=== PATIENT | male | born 1990 | race Caucasian/White ===

== ENCOUNTER → 2019-07-28 08:01 | Outpatient (CLI) | payer OTHER, SELFPAY ==
--- NOTE | 2019-07-28 | DI.MRI.S_ITS ---
PROCEDURE: MR ANGIO HEAD WO CON INDICATIONS: Aneurysm of carotid artery TECHNIQUE: Noncontrast axial 3-D [id number] MR angiogram, with 3-dimensional maximum intensity projection (MIP) reformats of the internal carotid arteries and posterior circulation then performed. COMPARISON: [facility], RG, CT ANGIO HEAD, 06/28/2017, 16:37. [facility], RG, CT HEAD W/WO CONTRAST, 06/28/2017, 16:03. FINDINGS: Image quality: Excellent. Anterior circulation: Intracranial internal carotid arteries demonstrate normal size and intraluminal flow signal. The flow within the paired anterior cerebral arteries is normal and symmetric. The flow within the middle cerebral arteries is normal and symmetric. The anterior communicating artery is seen. No stenoses, occlusions, or aneurysms. Comment: The intracranial CT angiogram dated 06/28/[address] 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 This area was specifically reported to be best seen on the sagittal reformation imaging from the CT source axial images on CT series 10, image 72. That particular site is actually not yet at the anatomic position of the supraclinoid left intracranial internal carotid artery but rather is at the undersurface of the undersurface of the superior half of the anterior genu segment of the artery. The overlying left clinoid process in this patient is relatively prominent, mildly deviating the underlying coarse of the artery focally downward just prior to its normal extension cephalad to the true supraclinoid segment. There is a similar slight kink as the undersurface of the cavernous segment transition to the inferior half of the anterior genu segment. Each of these 2 areas shows a resultant slight focal inferior curvature of the vessel wall. This curvature is expected given the morphology of the vessel segments, and there is no suspicion for this representing a sessile aneurysm at either of the 2 sites. The morphology of the vessel segments is better visualized by the current MR angiography, has not changed from the prior CT angiography, and the current study shows no suspicion for presence of aneurysm or vascular malformation elsewhere. Posterior circulation: Visualized portions of the vertebral arteries demonstrate prominently asymmetric caliber strongly left vertebral dominant, and do not join to form a normal appearing basilar artery. Rather, the diminutive right vertebral artery extends cephalad directly into the posterior inferior cerebellar artery while the left vertebral artery forms the basilar artery which extends as a normal vessel cephalad into the posterior circulation. The flow within the posterior cerebral arteries is normal and symmetric. No stenoses, occlusions, or aneurysms. IMPRESSION: 1. No sessile aneurysm is present in the area of prior CT concern at the margin of the intracranial internal carotid artery on the left. Please refer to the comment segment of the body of the report above for detailed anatomic discussion of the anatomy of the vessels in the area of concern in the cause of the prior CT finding. 2. There is a normal anatomic variant in this patient of diminutive right vertebral artery that extends directly cephalad into the right posterior inferior cerebellar artery. The left vertebral artery is strongly dominant, transitions into a normal appearing basilar artery, and arterial blood flow extends normally into the posterior circulation through that pathway. Dictated by: Monty Kang M.D. on 07/28/2019 at 9:37 Approved by: Altaf Moran M.D. on 08/03/2019 at 9:56
== END ==
PROVIDERS: PCP Family Medicine; Referring Provider Family Medicine; Visit Provider Family Medicine
DX: I72.0 Aneurysm of carotid artery (principal)
CPT/HCPCS: 70544

== ENCOUNTER → 2020-05-15 11:25 | Outpatient (ROUT) | payer OTHER, SELFPAY ==
[2020-05-15 11:55] LABS: COVID19 -Nasal RAPID Negative (Negative)
== END ==
PROVIDERS: PCP Family Medicine; Visit Provider Family Medicine
DX: Z01.812 Encounter for preprocedural laboratory examination (principal)
CPT/HCPCS: 87635

== ENCOUNTER 2020-12-14 15:54 | Emergency (ER) | payer OTHER, MEDICAID, SELFPAY ==
[2020-12-14 16:04] VITALS: BP 122/75; PULSE 87; RESP 15; TEMP 37.1; O2SAT 97; BMI 33.9
[2020-12-14 18:52] LABS: COVID19 -Nasal RAPID Negative (Negative)
--- NOTE | 2020-12-14 19:49 | ED.GENADULT ---
HPI - General Adult General Chief complaint: Weakness Stated complaint: nausea, weakness Time Seen by Provider: 12/14/20 18:10 Source: patient Mode of arrival: Ambulatory Limitations: no limitations History of Present Illness HPI narrative: 29-year-old gentleman with recent diagnosis of ADHD not currently medicated presents with acute illness symptoms starting at 1:00 p.m. today. He was nauseated had some chills but no fevers did not actually vomit but when his came home she was concerned that he was pale and looked obviously ill and brought him into the emergency room. Shortly after arrival she developed the same symptoms. He complains that he is excessively fatigued, nauseated. He did not actually vomit until he saw the IV started in her arm(he notes that he typically has reactions to blood draws and IVs). After some weight time prior to being seen he notes that he is feeling somewhat better, still fatigued but not quite is nauseated, thirsty no fevers, chest pain, diarrhea, abdominal pain, headaches, dizziness. Related Data Previous Rx's Medication Instructions Recorded ondansetron 4 mg disintegrating 4 mg PO Q6H PRN #14 tab 12/14/20 tablet Allergies Allergy/AdvReac Type Severity Reaction Status Date / Time No Known Drug Allergies Allergy Verified 12/14/20 16:05 Review of Systems Review of Systems Narrative: Remainder of complete review of systems is otherwise unremarkable except for that included in the HPI. Patient History Social History Smoking Status: Unknown if ever smoked Smoking Status: Unknown if ever smoked alcohol intake frequency: holidays/special occasions only Substance Use Type: does not use Exam Narrative Exam Narrative: General: Healthy appearing, in no acute distress. Able to give a complete and coherent history. Well-nourished well-developed HEENT: Moist mucous membranes, normal sclera with reactive pupils, Respiratory: Lungs are clear to auscultation, no wheezing no rales no rhonchi. Full and symmetrical air movement Cardiac: Regular rate and rhythm no murmurs no bruits Abdomen: Soft, nontender, good bowel tones, no flank pain Skin: Warm and dry, no rashes Neurologic: Somewhat fatigued but Grossly neurologically intact with no obvious asymmetries or abnormalities Extremities: No trauma, well perfused Psych: Cooperative, appropriate insight and affect Initial Vital Signs Initial Vital Signs: Vital Signs Temperature 98.8 F 12/14/20 16:04 Pulse Rate 87 12/14/20 16:04 Respiratory Rate 15 12/14/20 16:04 Blood Pressure 122/75 12/14/20 16:04 Pulse Oximetry 97 12/14/20 16:04 Course Orders Ordered: Discontinued Medications Ondansetron HCl (Ondansetron 4 Mg Odt) 4 mg SL NOW ONE Stop: 12/14/20 20:03 Last Admin: 12/14/20 20:05 Dose: 4 mg Documented by: [email or web address] Vital Signs Vital signs: Vital Signs - 8 hr 12/14/20 16:04 Temperature 98.8 F Pulse Rate 87 Respiratory Rate 15 Blood Pressure 122/75 Pulse Oximetry 97 Medical Decision Making Lab Data Labs: Lab Results 12/14/20 Range/Units 18:30 SARS-CoV-2 (PCR) Negative (Negative) MDM Narrative Medical decision making narrative: 29-year-old gentleman presents with acute nausea and severe fatigue. No other concerning symptoms and benign exam. COVID test is negative today. He is feeling better after and 0DT Zofran and tolerating oral fluids without difficulty. Suspect mild viral syndrome. No evidence of acute surgical abdomen, sepsis, COVID-19 for reason for additional exam at this time. Findings are showed with him questions are answered and he is safe for home discharge Discharge Plan Departure Patient Disposition: Home Clinical Impression: Acute viral syndrome Nausea & vomiting Qualifiers: Vomiting type: unspecified Vomiting Intractability: non-intractable Qualified Code(s): R11.2 - Nausea with vomiting, unspecified Instructions: Nausea and Vomiting-Adult Activity Restrictions/Additional Instructions: Thank you for coming in today You likely have a virus that is causing the acute fatigue in the nausea this afternoon. I do not see any evidence of appendicitis or something that might need surgery. Your COVID test was negative today I have given you a prescription for ondansetron, nausea medication. Please try to stay well hydrated. If you have new or worsening symptoms please return to the ER Prescriptions: New ondansetron 4 mg tablet,disintegrating 4 mg PO Q6H PRN (Reason: nausea and vomiting) Qty: 14 RF: 0 Referrals: Gonzales Jordan MD [Primary Care Provider] -
[2020-12-14] MEDS: ONDANSETRON 4 MG ODT SL (20:05)
[2020-12-14 20:09] VITALS: BP 118/68; PULSE 72; RESP 16; O2SAT 98
== END 2020-12-14 20:10 | disposition home or self-care (01) ==
PROVIDERS: Emergency Provider Emergency Medicine; PCP Family Medicine
DX: B34.9 Viral infection, unspecified (principal); R11.2 Nausea with vomiting, unspecified; R53.1 Weakness; Z20.822 Contact with and (suspected) exposure to COVID-19
CPT/HCPCS: 87635; 93005; 99283; C9803

== ENCOUNTER → 2024-11-24 09:07 | Outpatient (CLI) | payer OTHER, SELFPAY ==
[2024-11-24 10:53] LABS: Add Manual Diff / Slide Review NO; Hematocrit 43.2 % (41-53); Hemoglobin 15.0 g/dL (13.5-17.5); Lymphocytes Absolute Auto 2200 /uL (1100-4500); Mean Corpuscular HGB Conc 34.8 % (30-36); Mean Corpuscular Hemoglobin 29.5 PG (26-34); Mean Corpuscular Volume 84.8 fL (80-100); Platelet Count 272 X10^3/uL (150-400)
[2024-11-24 11:27] LABS: Alanine Aminotransferase 71 IU/L (<50); Albumin 4.4 g/dL (3.5-5.0); Albumin Globulin Ratio 1.6 (1.0-2.8); Alkaline Phosphatase 79 U/L (38-126); Blood Urea Nitrogen 16 mg/dL (9-20); Calcium 9.0 mg/dL (8.4-10.2); Carbon Dioxide 30 mmol/L (22-32); Chloride 102 mmol/L (98-107); Cholesterol 182 mg/dL (140-199); Estimated Glomerular Filt Rate > 60 mL/min (>60); Globulin 2.8 g/dL (1.7-4.1); Glucose 90 mg/dL (70-99); HDL Cholesterol 50 mg/dL (40-60); HEMOLYSIS < 15 (0-50); Potassium 4.6 mmol/L (3.4-5.1); Sodium 138 mmol/L (137-145); Total Protein 7.2 g/dL (6.3-8.2); Triglycerides 155 mg/dL (35-150)
== END ==
PROVIDERS: PCP Family Medicine; Referring Provider Family Medicine; Visit Provider Family Medicine
DX: Z00.00 Encounter for general adult medical examination without abnormal findings (principal)
CPT/HCPCS: 36415; 80053; 80061; 85025